=== PATIENT | male | born 1945 | race Caucasian/White ===

== ENCOUNTER 2025-08-15 12:02 | Emergency (ER) | payer OTHER, MEDICARE ==
[~2025-08-15] VITALS: Ht 172.7 cm; Wt 78.5 kg
--- NOTE | 2025-08-15 12:06 | ERN ---
ED Note History of Present Illness Stated Complaint: ABNORMAL LABS Chief Complaint: Abnormal Labs Time Seen by MD: 12:04 Time Seen by Midlevel: 12:15 Dictation: Mr. Ruvalcaba is a 80 year old gentleman with history of kidney stones, hypertension, hyperlipidemia, CAD, prostate cancer, and COPD who was referred to the Emergency Department by the [facility] for further evaluation of abnormal laboratory findings: K 5.36 and BUN/cr 43.4/1.58. He has no history of renal dysfunction. He states he was at the [facility] today for routine appointment/lab draw. He denies recent illness, fever, chills, shortness of breath, cough, chest pain, palpitations, edema, abdominal pain, nausea, vomiting, hematemesis, constipation, diarrhea, melena, hematochezia, dysuria, headache, dizziness, or focal weakness/paresthesia. PCP: [facility] T[facility] Forrest from [place] Allergies: Coded Allergies: No Known Allergies (Unverified Allergy, Unknown, 08/15/25) Past Medical History PSYCH History: no pertinent psych hx Social History: Negative, Lives with family RN Note Reviewed/Agreed w/PFSH: Yes Review of System Dictation REVIEW OF SYSTEMS: CONSTITUTIONAL: Patient denies fevers, chills, sweats and weight changes. EYES: Patient denies any visual symptoms. EARS, NOSE, AND THROAT: No difficulties with hearing. No symptoms of rhinitis or sore throat. CARDIOVASCULAR: Patient denies chest pains, palpitations, orthopnea and paroxysmal nocturnal dyspnea. RESPIRATORY: No dyspnea on exertion, no wheezing or cough. GI: No nausea, vomiting, diarrhea, constipation, abdominal pain, hematochezia or melena. : No urinary hesitancy or dribbling. No nocturia or urinary frequency. No abnormal urethral discharge. MUSCULOSKELETAL: No myalgias or arthralgias. NEUROLOGIC: No chronic headaches, no seizures. Patient denies numbness, tingling or weakness. PSYCHIATRIC: Patient denies problems with mood disturbance. No problems with anxiety. ENDOCRINE: No excessive urination or excessive thirst. DERMATOLOGIC: Patient denies any rashes or skin changes. Initial Vital Sign VS Vital Signs Date Time Temp Pulse Resp B/P (MAP) Pulse Ox O2 Delivery O2 Flow Rate FiO2 08/15/25 12:03 98.4 76 20 154/79 97 Room Air 08/15/25 13:03 0 21 Physical Exam Dictation Vital signs: Reviewed. Afebrile. Constitutional: No acute distress. Non-toxic appearing. Calm and pleasant. Significant other at bedside Head/Face: Normocephalic, atraumatic. Eyes: Periorbital areas with no swelling, redness, or edema. Lids and lashes are normal. Conjunctival injection is absent. Sclera anicteric. Pupils equal, round, reactive to light. ENT: Pinnas intact and no signs of trauma or erythema. Ear canals clear and no discharge. TMs no erythema. No nasal discharge or bleeding noted. Oropharynx with no exudate, redness, swelling, masses, exudates, or evidence of obstruction. Uvula midline. Mucous membranes moist. Neck: Trachea midline, no masses palpated, and no cervical lymphadenopathy. No swelling. Supple, full range of motion. Chest/Axilla: No tenderness, no crepitus, no paradoxical movement, no retractions. Cardiovascular: Regular rate, regular rhythm, no murmur, no gallops. Symmetric pulses. No peripheral edema. Twelve lead EKG reflects a sinus rhythm without ST-elevation. BP 154/79 Respiratory: Respirations even and unlabored. Lung sounds clear; no wheezes, rales or rhonchi. Room air SpO2 97% Gastrointestinal: Inspection is normal. No distention is appreciated. Bowel sounds are normal. No mass or organomegaly . There is no tenderness. No rebound. No rigidity. No voluntary or involuntary guarding. No Dow's sign. Neurological: Normal speech, gross motor function intact, gross sensory function intact. No focal weakness/Paresthesia. Musculoskeletal/Extremities: All extremities have full range of motion, no pain or tenderness on palpation. Symmetric pulses. Integumentary: Intact. Skin is normal color, warm and dry. Cap refill less than 3 seconds. Results (Laboratory/Radiology) Laboratory/Radiology Laboratory Tests Test 08/15/25 12:30 White Blood Count 7.8 K/uL (4.8-10.8) Red Blood Count 3.97 MIL/uL (4.50-6.20) L Hemoglobin 13.1 g/dL (14.0-18.0) L Hematocrit 40.9 % (42-54) L Mean Corpuscular Volume 103.0 fL (79-99) H Mean Corpuscular Hemoglobin 33.0 pg (27.0-33.0) Mean Corpuscular Hemoglobin Concent 32.0 g/dL (32.0-36.0) Red Cell Distribution Width 13.9 % (11.0-15.5) Platelet Count 269 K/uL (130-400) Mean Platelet Volume 9.7 fL (7.5-10.5) Nucleated Red Blood Cells 0.0 % (0.0-0.19) Sodium Level 137 mmol/L (136-145) Potassium Level 5.0 mmol/L (3.5-5.1) Chloride Level 104 mmol/L (101-111) Carbon Dioxide Level 22 mmol/L (21-32) Blood Urea Nitrogen 47 mg/dL (7-18) H Creatinine 1.6 mg/dL (0.5-1.3) H Glomerular Filtration Rate Calc 43 mL/min (>90) Random Glucose 99 mg/dL (70-105) Total Calcium 9.4 mg/dL (8.5-10.1) Magnesium Level 1.90 mg/dL (1.80-2.40) Troponin I High Sensitivity 20 ng/L (4-75) B-Type Natriuretic Peptide 161 pg/mL (0-100) H Labs Reviewed?: Yes EKG Comment: EKG Interpretation: Time Reviewed: 1304 Ventricular rate: 60 bpm PA Interval: 178 ms QRS duration: [address] segment elevation or depression. Clinical impression: Sinus rhythm EKG Reviewed and interpreted by Dr. Ever Jon ED Course ED Course Orders Procedure Category Date Status Time Cbc Without LAB 08/15/25 Complete Differential 12:11 Basic Metabolic Panel LAB 08/15/25 Complete 12:11 Magnesium LAB 08/15/25 Complete 12:11 12 Lead Ekg Tracing- EKG 08/15/25 Logged Technical 12:11 Troponin I High LAB 08/15/25 Complete Sensitivity 12:11 B-Type Natriuretic LAB 08/15/25 Complete Peptide 12:11 Vital Signs Date Time Temp Pulse Resp B/P (MAP) Pulse Ox O2 Delivery O2 Flow Rate FiO2 08/15/25 13:03 98.2 68 16 170/75 97 Room Air* 0 21 08/15/25 12:03 98.4 76 20 154/79 97 Room Air Vital signs stable; afebrile and normotensive with room air SpO2 97%. Twelve lead EKG reflects a sinus rhythm without ST-elevation. Laboratory findings as noted below. No elevation of WBCs. H&H are 13.1/40.9. BNP 161, BUN/creatinine 47/1.6. K is at 5.0, and GFR is 43. He feels clinically well, without signs of hyperkalemia on EKG, volume overload, infection, or acute kidney injury requiring inpatient care. Potassium is improved, and renal function is stable compared to [facility] values. He is able to follow up with the [facility] providers in [place] or locally as needed. He is safe for discharge with outpatient follow up. Medical Decision Making MDM MDM: Differential diagnosis: CKD, renal insufficiency, hyperkalemia, dehydration/volume depletion (prerenal azotemia), lab variation, CHF exacerbation Rationale: Tests considered and ordered secondary to shared decision making include: Previous outside records reviewed: Old ER visits. Risk of complication and/or morbidity or mortality of patient management: None Medications-Per medication reconciliation Need for hospitalization: Patient does not meet criteria for hospitalization. Need for emergency major/minor surgery: No There are no social concerns with this patient. Prescription drug management: Continue current medication regimen Prescriptions will include symptomatic care Patient's prior external medical records from other ER visits were reviewed by me as indicated. Prior testing and results from previous visits were reviewed. Prior tests were taken into account with medical decision making and resource utilization, independent historian/historians were used to obtain complete medical history. I independently interpreted the test that were performed, results were reviewed by me and considered findings on radiology if ordered. Medical management and examination interpretation discussions were had by me with other qualified healthcare professionals as indicated for the patient's care. DX & DISP Disposition: Discharge Departure Impression: Primary Impression: Abnormal laboratory test result Additional Impressions: Mild hyperkalemia, Chronic kidney disease versus baseline renal insufficiency (stage III) Condition: Stable Additional Instructions: You were evaluated for abnormal lab values that the [facility] found earlier today. We have repeated your labs here, and they are stable and improve: Your potassium is normal now at 5.0. Your kidney numbers, BUN and creatinine) are stable. Your heart tracing (EKG) was normal. You do not have an infection. At this time there was no emergency condition and you are safe to go home. Please follow up with your [facility] primary provider within the next 2-3 days to repeat the labs and continued monitoring. Since you are staying in [place] temporarily, [facility] worsened your [facility] to [facility] [place]. Stay hydrated. Avoid salt substitutes or high potassium foods until cleared by your [facility] doctor. Take your medications as prescribed. Return to the ER immediately if you develop: Chest pain, trouble breathing, severe weakness, heart palpitations, severe vomiting/diarrhea, reduce urination, swelling in your legs, or any new or concerning symptoms. Time of Disposition: 14:22 SAÚL PARKER [facility] Aug 15, 2025 12:06
[2025-08-15 12:41] LABS: NUCLEATED RED BLOOD CELLS 0.0 % (0.0-0.19); PLATELET COUNT (AUTO) 269.0 K/uL (130-400); RED BLOOD CELL COUNT(AUTO) 3.97 MIL/uL (4.50-6.20); RED CELL DISTRIBUTION WIDTH 13.9 % (11.0-15.5); WHITE BLOOD COUNT (AUTO) 7.8 K/uL (4.8-10.8)
[2025-08-15 12:49] LABS: CREATININE 1.6 mg/dL (0.5-1.3); GLOMERULAR FILTR. RATE CALC 43.0 mL/min (>90); GLUCOSE,RANDOM 99.0 mg/dL (70-105); SODIUM SERUM 137.0 mmol/L (136-145); UREA NITROGEN, BLOOD 47.0 mg/dL (7-18)
--- NOTE | 2025-08-15 13:03 | NUR ---
PATIENT PLACED IN ROOM
--- NOTE | 2025-08-15 14:11 | EKG ---
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
[2025-08-15 15:07] VITALS: BP 154/77; PULSE 76; RESP 16; TEMP 98.2; O2SAT 94
== END 2025-08-15 15:08 | disposition home or self-care (01) ==
LOC: EDH 12:02
DX: E87.5 Hyperkalemia (principal); I10 Essential (primary) hypertension; E78.5 Hyperlipidemia, unspecified; I25.10 Atherosclerotic heart disease of native coronary artery without angina pectoris; J44.9 Chronic obstructive pulmonary disease, unspecified; Z85.46 Personal history of malignant neoplasm of prostate
CPT/HCPCS: 36415; 80048; 83735; 83880; 84484; 85027; 93005; 99284